=== PATIENT | female | born 1945 | race Caucasian/White ===

== ENCOUNTER 2024-12-26 17:51 | Inpatient (IN) | payer OTHER ==
[2024-12-26] MEDS ORDERED: NA CHLORIDE 0.9% 250 ML ONE (18:20)
[2024-12-26] MEDS ORDERED: METOPROLOL XL 50 MG TAB PO ONE (18:20)
[2024-12-26] MEDS ORDERED: FAMOTIDINE 20 MG/2 ML VIAL IV ONE (18:20)
[2024-12-26] MEDS ORDERED: AMLODIPINE 10 MG TAB ONE (18:20)
[2024-12-26 18:30] LABS: Absolute Basophils 0.1 K/uL (0-0.5); Absolute Eosinophils 0.2 K/uL (0-0.5); Absolute Lymphocytes (CBC) 2.1 K/uL (0.7-4.9); Absolute Monocytes 0.6 K/uL (0.1-1.3); Absolute Neutrophil 4.8 K/uL (1.8-8.0); Basophils % 1.2 % (0-1.3); Eosinophils % 2.2 % (0-4.4); Hematocrit 40.9 % (36.0-45.0); Hemoglobin 13.5 g/dL (12.0-15.0); Lymphocytes % 27.2 % (15.3-44.8); MCH 31.1 pg (27.0-35.0); MCHC 32.9 g/dL (32.0-36.0); MCV 94.5 fL (80-100); MPV 9.3 fL (7.6-11.3); Neutrophils % 61.4 % (41.7-73.7); Nucleated Red Blood Cells % 0.1 % (0-0); Platelets 161 thou/uL (152-406); RBC Red Blood Cell Count 4.33 M/uL (3.86-4.86); Red Cell Distribution Width 14.7 % (12.1-15.2)
[2024-12-26 18:36] LABS: PT Prothrombin Time 12.9 SECONDS (10-13.0); Protime INR 1.14
[2024-12-26 18:57] LABS: ALT/SGPT 16 U/L (13-56); Albumin/Globulin Ratio 0.8 (1.1-1.8); Alkaline Phosphatase 106 U/L (45-117); Anion Gap 7.6 mEq/L (5.0-15.0); BUN Blood Urea Nitrogen 11 mg/dL (7-18); Bicarbonate 29 mEq/L (21-32); Bilirubin Total 0.2 mg/dL (0.2-1.0); Globulin 3.9 g/dL (2.3-3.5); Glomerular Filtration Rate 65 ml/min (=/>90); Glucose Level 107 mg/dL (74-106); Lipase 47 U/L (13-75); NT PRO-BNP 6204 pg/mL (<450); Potassium 3.6 mEq/L (3.5-5.1); Protein, Total 6.9 g/dL (6.4-8.2); Sodium Level 139 mEq/L (136-145); Troponin High Sensitivity 18.4 pg/mL (<58.9)
[2024-12-26 19:00] LABS: AST/SGOT < 10 U/L (15-37); Bilirubin Direct < 0.2 mg/dL (0-0.2)
--- NOTE | 2024-12-26 19:30 | EDPHYS ---
Physician Documentation [facility] Name: Blanche Escobedo Age: 79 yrs Sex: Female : 1945 Arrival Date: 12/26/2024 Time: 17:51 Bed 4 Private MD: ERI Physician Yonatan Smart HPI: 12/26 18:17 This 79 yrs old Female presents to ER via EMS with complaints of Blood narayan Pressure Problem. 18:17 The patient presents with a history of irregular heart beat. Context: The symptoms narayan occur at rest. Onset: The symptoms/episode began/occurred 1 day(s) ago. Modifying factors: The symptoms are aggravated by nothing. The symptoms are alleviated by prescription medication, rest. The patient presents with abdominal pain in the upper abdomen, in the lower abdomen. Onset: The symptoms/episode began/occurred 5 day(s) ago. The patient has elevated blood pressure and discovered this at home, with a home device. Modifying factors: The symptoms are aggravated by activity, The symptoms are alleviated by. Historical: - Allergies: 17:56 No Known Allergies; bp - Home Meds: 17:56 citalopram oral [Active]; Lasix Oral [Active]; bp - PMHx: 17:56 Hypertensive disorder; bp - Immunization history:: Adult Immunizations up to date. - Infectious Disease History:: Denies. - Social history:: Smoking status: unknown. ROS: 18:28 Constitutional: Negative for fever, chills, and weight loss, Eyes: Negative for injury, narayan pain, redness, and discharge, ENT: Negative for injury, pain, and discharge, Neck: Negative for injury, pain, and swelling, Cardiovascular: Negative for chest pain, palpitations, and edema, Respiratory: Negative for shortness of breath, cough, wheezing, and pleuritic chest pain, Back: Negative for injury and pain, : Negative for injury, bleeding, discharge, and swelling, MS/Extremity: Negative for injury and deformity, Skin: Negative for injury, rash, and discoloration, Neuro: Negative for headache, weakness, numbness, tingling, and seizure, Psych: Negative for depression, anxiety, suicide ideation, homicidal ideation, and hallucinations, Allergy/Immunology: Negative for hives, rash, and allergies, Endocrine: Negative for neck swelling, polydipsia, polyuria, polyphagia, and marked weight changes, 18:28 Abdomen/GI: Positive for abdominal cramps, Exam: 18:28 Constitutional: This is a well developed, well nourished patient who is awake, alert, narayan and in no acute distress. Head/Face: Normocephalic, atraumatic. Eyes: Pupils equal round and reactive to light, extra-ocular motions intact. Lids and lashes normal. Conjunctiva and sclera are non-icteric and not injected. Cornea within normal limits. Periorbital areas with no swelling, redness, or edema. ENT: Nares patent. No nasal discharge, no septal abnormalities noted. Tympanic membranes are normal and external auditory canals are clear. Oropharynx with no redness, swelling, or masses, exudates, or evidence of obstruction, uvula midline. Mucous membranes moist. Neck: Trachea midline, no thyromegaly or masses palpated, and no cervical lymphadenopathy. Supple, full range of motion without nuchal rigidity, or vertebral point tenderness. No Meningismus. Chest/axilla: Normal chest wall appearance and motion. Nontender with no deformity. No lesions are appreciated. Cardiovascular: Regular rate and rhythm with a normal S1 and S2. No gallops, murmurs, or rubs. Normal PMI, no JVD. No pulse deficits. Respiratory: Lungs have equal breath sounds bilaterally, clear to auscultation and percussion. No rales, rhonchi or wheezes noted. No increased work of breathing, no retractions or nasal flaring. Back: No spinal tenderness. No costovertebral tenderness. Full range of motion. Female : Normal external genitalia. Skin: Warm, dry with normal turgor. Normal color with no rashes, no lesions, and no evidence of cellulitis. Neuro: Awake and alert, GCS 15, oriented to person, place, time, and situation. Cranial nerves II-XII grossly intact. Motor strength 5/5 in all extremities. Sensory grossly intact. Cerebellar exam normal. Normal gait. Psych: Awake, alert, with orientation to person, place and time. Behavior, mood, and affect are within normal limits. 18:28 ECG was reviewed by the Attending Physician. 18:28 Abdomen/GI: Inspection: distension, that is mild, Bowel sounds: normal, Palpation: mild abdominal tenderness, in all quadrants, Liver: no appreciated palpable abnormalities, Hernia: noted in the umbilical area, incarceration, is not appreciated, tenderness, is not appreciated, Vital Signs: 17:55 BP 194 / 88; bp 18:17 BP 220 / 102; Pulse 73; Resp 18; Pulse Ox 98% on 2 lpm NC; mb9 19:02 BP 188 / 93; Pulse 68; Resp 16; Pulse Ox 97% on 2 lpm NC; mb9 20:33 BP 208 / 82; Pulse 67; Resp 19; Pulse Ox 97% ; vc1 20:34 Temp 98.6; vc1 21:26 BP 172 / 58; Pulse 83; Resp 23; Pulse Ox 93% ; vc1 21:34 BP 161 / 44; vc1 MDM: 18:02 Medical Screening Exam initiated narayan 18:31 Differential diagnosis: arrythmia, dehydration, stress disorder, hypertensive crisis, narayan Malignant HTN, CVA, intracerebral hemorrhage, acute coronary syndrome. Data reviewed: vital signs, nurses notes, lab test result(s), EKG, radiologic studies. Consideration of Admission/Observation Patient was admitted/placed on observation. Escalation of care including admission/observation considered. I considered the following discharge prescriptions or medication management in the emergency department Medications were administered in the Emergency Department. See MAR. Independent interpretation of the following test(s) in the Emergency Department EKG: See my EKG interpretation above. Test considered but Not performed: Ultrasound no 2 d echo. Historians other than the Patient: Daughter/Son: daughter not to well informed. Care significantly affected by the following chronic conditions: Hypertension, Obesity. Counseling: I had a detailed discussion with the patient and/or guardian regarding the historical points, exam findings, and any diagnostic results supporting the discharge/admit diagnosis, the presence of at least one elevated blood pressure reading (>120/80) during this emergency department visit, lab results, radiology results, the need for further work-up and treatment in the hospital. 12/26 18:03 Order name: Basic Metabolic Panel; Complete Time: : [facility] 12/26 18: Order name: CBC with Diff; Complete Time: : [facility] 12/26 18:03 Order name: LFT's; Complete Time: : [facility] 12/26 18:03 Order name: Magnesium; Complete Time: : [facility] 12/26 18:03 Order name: NT PRO-BNP; Complete Time: : [facility] 12/26 18:03 Order name: PT-INR; Complete Time: 19:22 narayan 12/26 18:03 Order name: Troponin HS; Complete Time: 19:22 narayan 12/26 18:03 Order name: Lipase; Complete Time: 19:22 [facility] 12/26 18:17 Order name: Dilantin; Complete Time: 19:22 [facility] 12/26 19:26 Order name: Blood Culture Adult (2) 12/26 19:26 Order name: Lactate w/ 2H reflex if indic. narayan 12/26 20:02 Order name: CBC with Automated Diff EDMS 12/26 20:02 Order name: CBC with Automated Diff EDMS 12/26 20:02 Order name: Comprehensive Metabolic Panel EDMS 12/26 20:02 Order name: Comprehensive Metabolic Panel EDMS 12/26 20:02 Order name: Magnesium EDMS 12/26 20:02 Order name: Magnesium EDMS 12/26 20:02 Order name: Phosphorus EDMS 12/26 20:02 Order name: Phosphorus EDMS 12/26 18:03 Order name: XRAY Chest (1 view); Complete Time: 20:07 [facility] 12/26 18:16 Order name: CT Chest Abdomen Pelvis W/O Contrast narayan 12/26 18:03 Order name: Cardiac monitoring; Complete Time: 18:19 [facility] 12/26 18:03 Order name: EKG - Nurse/Tech; Complete Time: 18:19 [facility] 12/26 18:03 Order name: IV Saline Lock; Complete Time: 18:19 [facility] 12/26 18:03 Order name: Labs collected and sent; Complete Time: 18:19 [facility] 12/26 18:03 Order name: O2 Per Protocol; Complete Time: 18:19 [facility] 12/26 18:03 Order name: O2 Sat Monitoring; Complete Time: 18:19 [facility] EC:28 Rate is 73 beats/min. MO interval is normal. QRS interval is normal. QT interval is narayan normal. No Q waves. T waves are Normal. ST Segment is depressed in leads I, aVL, V5, V6. Clinical impression: NSR w/ Non-specific ST/T Changes. Interpreted by me. Reviewed by me. Administered Medications: 19:25 Discontinued: ns 0.9% 250 ml IV at per protocol once; to be given as a bolus over 30 narayan minutes 18:26 Drug: Famotidine IVP 20 mg IVP once; dilute with 10 mL 0.9% NaCl; give over 2 minutes mb9 Route: IVP; Site: left forearm; 19:02 Follow up: Response: No adverse reaction mb9 18:27 Drug: NS 0.9% IV 250 ml IV at per protocol once; to be given as a bolus over 30 minutes mb9 Route: IV; Rate: per protocol; Site: left forearm; 19:03 Follow up: Response: No adverse reaction; IV Status: Completed infusion mb9 18:27 Drug: Norvasc PO 10 mg PO once Route: PO; mb9 19:02 Follow up: Response: No adverse reaction mb9 18:27 Drug: Metoprolol PO 50 mg PO once Route: PO; mb9 19:02 Follow up: Response: No adverse reaction mb9 20:49 Drug: hydrALAZINE IVP 20 mg IVP once Route: IVP; Site: left forearm; ha1 21:20 Follow up: Response: No adverse reaction; Blood pressure is lowered ha1 21:12 Drug: Rocephin IV 1 grams IV at per protocol once; Given slow IV push per pharmacy vc1 instructions Route: IV; Rate: per protocol; Site: left wrist; 21:50 Follow up: Response: No adverse reaction; IV Status: Completed infusion ha1 21:12 Drug: Furosemide IVP 40 mg IVP once; give over 2 minutes Route: IVP; Site: left wrist; vc1 22:41 Follow up: Response: No adverse reaction ha1 21:25 Drug: levofloxacin IVPB 500 mg 100 ml IVPB once over 60 mins Volume: 100 ml; Route: vc1 IVPB; Infused Over: 60 mins; Site: left forearm; 22:41 Follow up: Response: No adverse reaction; IV Status: Completed infusion ha1 21:25 Drug: Potassium PO Effervescent Tablet 25 mEq PO once; dissolve in 4 ounces of water or vc1 juice Route: PO; 22:41 Follow up: Response: No adverse reaction ha1 21:26 Not Given (not availablee): [id number] mg IVPB once; (mix in 50 to 100mL NS) vc1 Disposition Summary: 12/26/24 19:30 Hospitalization Ordered Notes: Hospitalization Status: Inpatient Admission narayan Provider: Hunter Gamez cha Location: Telemetry/MedSur (Inpatient) narayan Condition: Fair narayan Problem: new narayan Symptoms: have improved narayan Bed/Room Type: Standard narayan Room Assignment: 222(12/26/24 21:03) kmf Diagnosis - Essential (primary) hypertension narayan - Dyspnea narayan - Chronic combined systolic (congestive) and diastolic (congestive) heart failure narayan - Edema, unspecified narayan - Pneumonia due to other specified bacteria - right lower lobe narayan Forms: - Medication Reconciliation Form narayan - SBAR form narayan - Leadership Thank You Letter narayan Signatures: Dispatcher [employer] EDYonatan Peters MD MD cha Peltier, Brian RN RN bp Zenaida Branch RN RN vc1 Brielle Parkinson RN RN ha1 mAy Cruz RN RN mb9 Joseph Tolentino MD MD rt Forrester, Kelsey Maroul kmf Corrections: (The following items were deleted from the chart) 21:03 19:30 narayan kmf
--- NOTE | 2024-12-26 19:30 | ER ---
Nurse's Notes [facility] Name: Blanche Escobedo Age: 79 yrs Sex: Female : 1945 Arrival Date: 12/26/2024 Time: 17:51 Bed 4 Private MD: Diagnosis: Essential (primary) hypertension;Dyspnea;Chronic combined systolic (congestive) and diastolic (congestive) heart failure;Edema, unspecified;Pneumonia due to other specified bacteria-right lower lobe Presentation: 12/26 17:55 Chief complaint: EMS states: HYPERTENSIVE, OUT OF MEDS. bp 17:55 Coronavirus screen: At this time, the client does not indicate any symptoms associated bp with coronavirus-19. Ebola Screen: No symptoms or risks identified at this time. Initial Sepsis Screen: Does the patient meet any 2 criteria? No. Patient's initial sepsis screen is negative. Does the patient have a suspected source of infection? No. Patient's initial sepsis screen is negative. Risk Assessment: Do you want to hurt yourself or someone else? Patient reports no desire to harm self or others. Onset of symptoms is unknown. 17:55 Method Of Arrival: EMS bp 17:55 Acuity: CHAYA 3 bp Historical: - Allergies: 17:56 No Known Allergies; bp - Home Meds: 17:56 citalopram oral [Active]; Lasix Oral [Active]; bp - PMHx: 17:56 Hypertensive disorder; bp - Immunization history:: Adult Immunizations up to date. - Infectious Disease History:: Denies. - Social history:: Smoking status: unknown. Screenin:17 [facility] ED Fall Risk Assessment (Adult) History of falling in the last 3 months, mb9 including since admission No falls in past 3 months (0 pts) Confusion or Disorientation No (0 pts) Intoxicated or Sedated No (0 pts) Impaired Gait No (0 pts) Mobility Assist Device Used No (0 pt) Altered Elimination No (0 pt) Score/Fall Risk Level 0 - 2 = Low Risk Oriented to surroundings, Maintained a safe environment, Educated pt \T\ family on fall prevention, incl call for assistance when getting out of bed. Abuse screen: Denies threats or abuse. Nutritional screening: No deficits noted. Tuberculosis screening: No symptoms or risk factors identified. Assessment: 18:16 General: Appears in no apparent distress. Behavior is calm, cooperative. Pain: Denies frank pain. Neuro: Level of Consciousness is awake, alert, obeys commands, Oriented to person, place, time, situation, Appropriate for age. Cardiovascular: Heart tones S1 S2 present Patient's skin is warm and dry. Cardiovascular: Denies chest pain, shortness of breath. Respiratory: Airway is patent Respiratory effort is even, unlabored, Respiratory pattern is regular, symmetrical, Breath sounds are clear bilaterally. GI: Abdomen is round distended, Bowel sounds present X 4 quads. Abd is soft and non tender X 4 quads. : No signs and/or symptoms were reported regarding the genitourinary system. EENT: No signs and/or symptoms were reported regarding the EENT system. Derm: Skin is pink, warm \T\ dry. Musculoskeletal: Range of motion: intact in all extremities. Vital Signs: 17:55 BP 194 / 88; bp 18:17 BP 220 / 102; Pulse 73; Resp 18; Pulse Ox 98% on 2 lpm NC; mb9 19:02 BP 188 / 93; Pulse 68; Resp 16; Pulse Ox 97% on 2 lpm NC; mb9 20:33 BP 208 / 82; Pulse 67; Resp 19; Pulse Ox 97% ; vc1 20:34 Temp 98.6; vc1 21:26 BP 172 / 58; Pulse 83; Resp 23; Pulse Ox 93% ; vc1 21:34 BP 161 / 44; vc1 ED Course: 17:54 Patient arrived in ED. bp 17:56 Triage completed. bp 17:56 Arm band placed on. bp 18:02 Yonatan Smart MD is Attending Physician. narayan 18:09 Michel Powers, RN is Primary Nurse. bp 18:16 Primary Nurse role handed off by Michel Powers, ANAY marie 18:16 Amy Cruz, ANAY is Primary Nurse. frank 18:16 Initial lab(s) drawn, by me, sent to lab. EKG done, by ED staff, reviewed by Yonatan Smart MD. Inserted saline lock: 22 gauge in left forearm, using aseptic technique. Blood collected. Flushed with 10 mL NS. 18:26 Bed in low position. Call light in reach. Side rails up X 1. Provided Education on: frank press call light if needing anything. Client placed on continuous cardiac and pulse oximetry monitoring. NIBP monitoring applied. bus driver/monitor on. 18:26 No provider procedures requiring assistance completed. mb9 19:25 XRAY Chest (1 view) In Process Unspecified. EDMS 19:27 Hunter Gamez MD is Hospitalizing Provider. [facility] 19:32 CT Chest Abdomen Pelvis W/O Contrast In Process Unspecified. EDMS 22:40 Patient admitted, IV remains in place. ha1 Administered Medications: 19:25 Discontinued: ns 0.9% 250 ml IV at per protocol once; to be given as a bolus over 30 narayan minutes 18:26 Drug: Famotidine IVP 20 mg IVP once; dilute with 10 mL 0.9% NaCl; give over 2 minutes mb9 Route: IVP; Site: left forearm; 19:02 Follow up: Response: No adverse reaction mb9 18:27 Drug: NS 0.9% IV 250 ml IV at per protocol once; to be given as a bolus over 30 minutes mb9 Route: IV; Rate: per protocol; Site: left forearm; 19:03 Follow up: Response: No adverse reaction; IV Status: Completed infusion mb9 18:27 Drug: Norvasc PO 10 mg PO once Route: PO; mb9 19:02 Follow up: Response: No adverse reaction mb9 18:27 Drug: Metoprolol PO 50 mg PO once Route: PO; mb9 19:02 Follow up: Response: No adverse reaction mb9 20:49 Drug: hydrALAZINE IVP 20 mg IVP once Route: IVP; Site: left forearm; ha1 21:20 Follow up: Response: No adverse reaction; Blood pressure is lowered ha1 21:12 Drug: Rocephin IV 1 grams IV at per protocol once; Given slow IV push per pharmacy vc1 instructions Route: IV; Rate: per protocol; Site: left wrist; 21:50 Follow up: Response: No adverse reaction; IV Status: Completed infusion ha1 21:12 Drug: Furosemide IVP 40 mg IVP once; give over 2 minutes Route: IVP; Site: left wrist; vc1 22:41 Follow up: Response: No adverse reaction 1 21:25 Drug: levofloxacin IVPB 500 mg 100 ml IVPB once over 60 mins Volume: 100 ml; Route: vc1 IVPB; Infused Over: 60 mins; Site: left forearm; 22:41 Follow up: Response: No adverse reaction; IV Status: Completed infusion ha1 21:25 Drug: Potassium PO Effervescent Tablet 25 mEq PO once; dissolve in 4 ounces of water or vc1 juice Route: PO; 22:41 Follow up: Response: No adverse reaction 1 21:26 Not Given (not availablee): [id number] mg IVPB once; (mix in 50 to 100mL NS) vc1 Medication: 21:27 VIS not applicable for this client. vc1 Outcome: 19:30 Decision to Hospitalize by Provider. narayan 22:34 Admitted to Med/surg accompanied by tech, via stretcher, room 222, with oxygen, with vc1 chart, 22:34 Condition: stable 22:34 Instructed on the need for admit, 22:42 Patient left the ED. 1 Signatures: Dispatcher [employer] EDYonatan Peters MD MD cha Peltier, Brian, RN RN Zenaida Francisco RN RN vc1 Brielle Parkinson RN RN ha1 Amy Cruz RN RN mb9
--- NOTE | 2024-12-26 19:31 | RAD REPORT ---
EXAMINATION: ONE VIEW CHEST XR CLINICAL INDICATION: Female, 79 years old.,COUGH TECHNIQUE: Frontal chest projection is submitted. Examination is limited by patient positioning and t echnique. COMPARISON: 12/26/2024 FINDINGS: Central interstitial prominence and bilateral perihilar and bibasilar hazy opacities more so on the r ight. Suspected small pleural effusions. No pneumothorax. The heart is normal in size. Mediastinal contours are unremarkable. IMPRESSION: Findings suggestive of pulmonary edema. Superimposed pneumonia may also be considered.
[2024-12-26] MEDS ORDERED: ALBUTEROL 2.5 MG/3 ML NEB SOL NEB PRN (19:57)
[2024-12-26] MEDS ORDERED: IPRATROPIUM BROM 0.5MG/2.5ML NEB PRN (19:57)
[2024-12-26] MEDS ORDERED: ACETAMINOPHEN 325 MG TABLET PO PRN (19:57)
--- NOTE | 2024-12-26 19:57 | P.HP ---
Certification for Inpatient Patient admitted to: Inpatient With expected LOS: >2 Midnights Practitioner: I am a practitioner with admitting privileges, knowledge of patient current condition, hospital course, and medical plan of care. Services: Services provided to patient in accordance with Admission requirements found in Title 42 Section 412.3 of the Code of Federal Regulations Patient History Date of Service: 12/27/24 Reason for admission: CHF exacerbation History of Present Illness: 79 yrs old Female with past medical history of hypertension, hyperlipidemia, history of ? CHF brought to ER with irregular heartbeat and shortness of breath and elevated blood pressure. Symptoms started a day ago associated with irregular heartbeat and generalized weakness. Denies any fever or chills. No nausea vomiting diarrhea. No sick contacts. Complains of abdominal discomfort in the right upper quadrant and epigastric region. Denies any nausea vomiting or diarrhea. Denies any chest pain. Patient was assessed in the ER and is admitted for further management of CHF exacerbation Allergies Penicillins Allergy (Verified 12/26/24 23:02) Itching Home medications list reviewed: Yes - Past Medical/Surgical History Past Medical History: Reviewed- Non-Contributory Past Surgical History: Reviewed- Non-Contributory - Family History Family History: Reviewed- Non-Contributory - Family History Mother -: Cancer - Social History Smoking Status: Never smoker Review of Systems 10-point ROS is otherwise unremarkable Physical Examination - Vital Signs Temperature: 98.2 F Blood Pressure: 168/75 Pulse: 78 Respirations: 18 Pulse Ox (%): 94 - Physical Exam General: Alert, In no apparent distress, Oriented x3 HEENT: Atraumatic, Normocephalic Neck: Supple Respiratory: Clear to auscultation bilaterally, Diminished Cardiovascular: Regular rate/rhythm, Normal S1 S2 Capillary refill: <2 Seconds Gastrointestinal: Soft and benign, W/out hepatosplenomegaly Musculoskeletal: No clubbing Integumentary: No rashes, No tenderness/swelling Neurological: Other (Awake alert nonfocal) Lymphatics: No axilla or inguinal lymphadenopathy - Studies Laboratory Data (last 24 hrs) 12/26/24 12/26/24 12/26/24 18:14 18:14 18:14 WBC 7.80 Hgb 13.5 Hct 40.9 Plt Count 161 PT 12.9 INR 1.14 Sodium 139 Potassium 3.6 BUN 11 Creatinine 0.90 Glucose 107 H Magnesium 2.0 Total Bilirubin 0.2 AST < 10 L ALT 16 Alkaline Phosphatase 106 Lipase 47 Assessment and Plan - Plan Acute on chronic CHF possibly systolic/diastolic Monitor closely on telemetry Started on aggressive diuresis X-ray findings consistent with CHF Oxygen supplementation Will try to wean down oxygen requirement Continue home medications Titrate as needed Will obtain an echocardiogram Cardiology consult Hypertension Antihypertensives titrated Continue home medications and titrate as needed Hyperlipidemia Continue statin GI/DVT prophylaxis Advanced directive full code Discharge Plan: Home Plan to discharge in: 48 Hours - Advance Directives Does patient have a Living Will: No Does patient have a Durable POA for Healthcare: No - Code Status/Comfort Care Code Status: Full Code Time Spent Managing Pts Care (In Minutes): 48
--- NOTE | 2024-12-26 20:31 | RAD REPORT ---
EXAM: CT CHEST, ABDOMEN AND PELVIS WITHOUT CONTRAST CLINICAL INDICATION: Female, 79 years old. [facility] MAIN Abdominal distention;Dyspnea Bed Name: 4 TECHNIQUE: CT chest, abdomen and pelvis was performed, without IV contrast, as per department protoco l. Axial, sagittal and coronal reconstructions were obtained. One or more of the following dose reduction techniques were used: Automated exposure control, adjustment of the mA and/or kV according to the patient size, and/or iterative reconstruction. Unless otherwise specified, incidental findings do not require dedicated imaging follow-up. COMPARISON: Chest radiograph of the same day FINDINGS: The lack of intravenous contrast limits the sensitivity of this exam for evaluation of solid visceral organs, vascular structures, and retroperitoneum. Chest: LOWER NECK/CHEST WALL: Visualized thyroid gland and soft tissues are normal. LUNGS AND AIRWAYS: Central airways are patent. Interlobular septal thickening, basal predominant, wit h dependent segmental airspace opacities with volume loss. Subtle Josefina B-lines are also noted. PLEURA: Bilateral moderate pleural effusion larger on the right. No pneumothorax. Hemidiaphragms are normally positioned. MEDIASTINUM AND LYMPH NODES: No mediastinal mass or fluid collection. Normal size mediastinal, hilar, and axillary lymph nodes. THORACIC AORTA: Normal caliber and configuration. PULMONARY ARTERIES: Normal caliber. HEART: mildly enlarged. Abdomen/Pelvis LIVER: Normal in size and contour. No focal lesion. GALLBLADDER/BILE DUCTS: No biliary ductal dilatation. PANCREAS: No mass, ductal dilation, or robert-pancreatic fluid. SPLEEN: Normal size. No focal lesion. ADRENALS: Normal; no mass. KIDNEYS AND URETERS: Normal size and contour. No hydronephrosis. GASTROINTESTINAL TRACT: Stomach is non-dilated. Small bowel has normal course and caliber. No colonic wall thickening or pericolonic inflammatory changes. PERITONEUM: No free fluid. LYMPH NODES: No lymphadenopathy. ABDOMINAL AORTA AND OTHER VESSELS: Normal caliber aorta and IVC. URINARY BLADDER: Compressed limiting evaluation.. REPRODUCTIVE ORGANS: No pathologic process. MUSCULOSKELETAL: No acute or suspicious osseous abnormality. ADDITIONAL FINDINGS: Small umbilical hernia containing fat. Multiple foci of calcifications in the pe riphery of the uterus, could be vascular or related subtle fibroids. Vascular medial calcifications, suggesting sequelae of diabetes mellitus. IMPRESSION: Pulmonary edema pattern with bilateral pleural effusions larger on the right. Dependent airspace opac ities with volume loss, favoring atelectasis rather than pneumonia. No acute findings in the abdomen or pelvis. Incidental findings as above.
[2024-12-26] MEDS ORDERED: HYDRALAZINE HCL 20 MG/ML VIAL ONE (20:46)
[2024-12-26] MEDS ORDERED: FUROSEMIDE 40 MG/4 ML VIAL ONE (20:55)
[2024-12-26] MEDS ORDERED: CEFTRIAXONE 1000 MG/VIAL ONE (20:55)
[2024-12-26] MEDS ORDERED: POTASSIUM 25 MEQ EFFERV TAB ONE (20:55)
[2024-12-26] MEDS ORDERED: NA CHLORIDE 0.9% 100 ML ONE (20:58)
[2024-12-26] MEDS ORDERED: Levofloxacin500mg IV 500 MG/100 ML BAG IV ONE (20:58)
[2024-12-26] MEDS: FUROSEMIDE 40 MG/4 ML VIAL IV SCH (21:21)
[2024-12-26] MEDS ORDERED: ONDANSETRON 4 MG/2 ML VIAL ONE (21:48)
[2024-12-26] MEDS: ONDANSETRON 4 MG/2 ML VIAL IV PRN (21:52)
[2024-12-27] MEDS: LOSARTAN POTASSIUM 50 MG TABLET PO SCH (00:50)
[2024-12-27] MEDS: HYDRALAZINE HCL 25 MG TABLET PO SCH (00:50)
[2024-12-27] MEDS: HYDRALAZINE HCL 20 MG/ML VIAL IV PRN (04:30)
[2024-12-27 05:47] LABS: Absolute Basophils 0.1 K/uL (0-0.5); Absolute Eosinophils 0.1 K/uL (0-0.5); Absolute Lymphocytes (CBC) 1.6 K/uL (0.7-4.9); Absolute Monocytes 0.7 K/uL (0.1-1.3); Absolute Neutrophil 6.9 K/uL (1.8-8.0); Basophils % 1.1 % (0-1.3); Eosinophils % 0.9 % (0-4.4); Hematocrit 38.3 % (36.0-45.0); Hemoglobin 12.9 g/dL (12.0-15.0); Lymphocytes % 16.6 % (15.3-44.8); MCH 31.3 pg (27.0-35.0); MCHC 33.7 g/dL (32.0-36.0); MCV 92.9 fL (80-100); MPV 9.3 fL (7.6-11.3); Monocytes % 7.4 % (3.3-12.3); Nucleated Red Blood Cells % 0.1 % (0-0); Platelets 169 thou/uL (152-406); RBC Red Blood Cell Count 4.12 M/uL (3.86-4.86); Red Cell Distribution Width 14.7 % (12.1-15.2)
[2024-12-27 06:08] LABS: Albumin 2.8 g/dL (3.4-5.0); Albumin/Globulin Ratio 0.7 (1.1-1.8); Alkaline Phosphatase 98 U/L (45-117); Anion Gap 9.4 mEq/L (5.0-15.0); BUN Blood Urea Nitrogen 11 mg/dL (7-18); Bicarbonate 27 mEq/L (21-32); Bilirubin Total 0.3 mg/dL (0.2-1.0); Globulin 3.8 g/dL (2.3-3.5); Glomerular Filtration Rate 63 ml/min (=/>90); Glucose Level 122 mg/dL (74-106); Magnesium 1.7 mg/dL (1.6-2.4); Phosphorus 3.4 mg/dL (2.5-4.9); Potassium 3.4 mEq/L (3.5-5.1); Protein, Total 6.6 g/dL (6.4-8.2); Sodium Level 137 mEq/L (136-145)
[2024-12-27 06:11] LABS: ALT/SGPT < 14 U/L (13-56); AST/SGOT < 10 U/L (15-37)
[2024-12-27] MEDS: FLU (Fluarix Triv) TS24-25(6MOS UP)/PF 45 MCG/0.5 ML Syringe IM ONE (07:15)
[2024-12-27] MEDS ORDERED: ALBUTEROL 2.5 MG/3 ML NEB SOL NEB PRN (07:57)
[2024-12-27] MEDS: POTASSIUM CL SA 10 MEQ TAB PO ONE (08:35)
[2024-12-27] MEDS: MAGNESIUM SULFATE 1 gm IVPB 1 GM/100 ML BAG IV ONE (08:36)
[2024-12-27] MEDS: ENOXAPARIN 40 MG/0.4 ML SQ SCH (08:36)
[2024-12-27] MEDS: KCL 20 MEQ/100 mL IVPB 20 MEQ/100 ML BAG IV SCH (09:00)
[2024-12-27] MEDS: PHENYTOIN ER 100 MG CAP PO SCH (13:22)
[2024-12-27] MEDS: PANTOPRAZOLE 40MG TABLET PO SCH (13:22)
[2024-12-27] MEDS: METOPROLOL XL 25 MG TAB PO SCH (13:22)
--- NOTE | 2024-12-27 14:03 | P.PN ---
Subjective Date of Service: 12/27/24 Chief Complaint: CHF exacerbation Patient stated her shortness of breath is better. She denies any chest pain. She is currently maintained on 3 L oxygen by nasal cannula. Physical Examination - Vital Signs Temperature: 98.2 F Blood Pressure: 129/59 Pulse: 70 Respirations: 20 Pulse Ox (%): 94 - Studies Laboratory Data (last 24 hrs) 12/26/24 12/26/24 12/26/24 18:14 18:14 18:14 WBC 7.80 Hgb 13.5 Hct 40.9 Plt Count 161 PT 12.9 INR 1.14 Sodium 139 Potassium 3.6 BUN 11 Creatinine 0.90 Glucose 107 H Magnesium 2.0 Total Bilirubin 0.2 AST < 10 L ALT 16 Alkaline Phosphatase 106 Lipase 47 Assessment And Plan - Plan Physical examination General: Alert and oriented x3, NAD, HEENT: Conjunctiva not pale, anicteric sclera Neck: Supple, no elevated JVD Heart: Heart sounds 1 and 2 normal, regular rhythm, normal rate, no pedal edema Lungs: C bibasilar crackles, adequate breath sounds bilaterally, no rhonchi or wheezes. Abdomen: Soft, nondistended, nontender, normal bowel sounds. Extremities: No tenderness, no deformity Skin: Normal skin turgor, no rash, no nodules or ulcers. Neuro: No focal motor deficit. Normal speech. Psychiatry: Normal mood, no agitation. Diagnosis Acute CHF-unknown EF Bilateral pleural effusion Malignant hypertension Seizure disorder Plan: Acute CHF Bilateral pleural effusion Unknown EF Aggressive diuresis with IV Lasix. Monitor intake and output Monitor renal function by Lasix. Echocardiogram is pending Cardiology consult Supplemental oxygen as needed. Malignant hypertension Patient given a dose of IV hydralazine and a dose of oral metoprolol Patient is currently normotensive Monitor BP Hydralazine IV as needed for BP spikes. Seizure disorder Patient given a dose of IV fosphenytoin in the ED. Phenytoin level checked is subtherapeutic. Resume home dose phenytoin. Hypokalemia Oral potassium replacement Monitor and optimize potassium levels as needed. DVT prophylaxis: Lovenox Advanced directive: full code
[2024-12-27] MEDS: ATORVASTATIN 40 MG TAB PO SCH (21:03)
[2024-12-28 05:52] LABS: Potassium 3.6 mEq/L (3.5-5.1)
[2024-12-28] MEDS: POTASSIUM CL SA 10 MEQ TAB PO ONE (09:32)
--- NOTE | 2024-12-28 12:08 | EKG ---
Test Date: 2024-12-26 Test Time: 18:16:44 Safety Teacher: RULA MEASUREMENT RESULTS: Intervals: Rate: 73 OR: 152 QRSD: 96 QT: 388 QTc: 427 [place]: P: 0 OR: 152 QRS: -9 T: 160 INTERPRETIVE STATEMENTS: Normal sinus rhythm Anterior infarct, age undetermined ST & T wave abnormality, consider lateral ischemia Abnormal ECG No previous ECG available for comparison Electronically Signed On 12-28-24 12:06:27 CDT by Gerry Kidd
--- NOTE | 2024-12-28 15:47 | RAD REPORT ---
Procedure: Chest Single View HISTORY: Cough COMPARISON: December 26, 2024 FINDINGS: Moderate right and [id number] left pleural effusions without significant change Bilateral pulmonary opacities have mostly resolved. Heart remains enlarged
--- NOTE | 2024-12-28 17:42 | P.PN ---
Subjective Date of Service: 12/28/24 Chief Complaint: CHF exacerbation Patient reports significant improvement in her shortness of breath. Patient states she uses oxygen only during sleep She denies any chest pain. Oxygen saturation 92% on room air however patient desaturated to 85% with ambulation. Physical Examination - Vital Signs Temperature: 98.0 F Blood Pressure: 192/79 Pulse: 67 Respirations: 18 Pulse Ox (%): 92 Assessment And Plan - Plan Physical examination General: Alert, NAD, HEENT: Conjunctiva not pale, anicteric sclera Neck: No elevated JVD Heart: Heart sounds 1 and 2 normal, regular rhythm, normal rate, no pedal edema Lungs: Bibasilar crackles, adequate breath sounds bilaterally, no rhonchi or wheezes. Abdomen: Soft, nondistended, nontender, normal bowel sounds. Extremities: No tenderness, no deformity Skin: Normal skin turgor, no rash, no nodules or ulcers. Neuro: No focal motor deficit. Normal speech. Psychiatry: Normal mood, no agitation. Diagnosis Acute CHF-unknown EF Bilateral pleural effusion Malignant hypertension Seizure disorder Acute respiratory failure with hypoxia. Plan: Acute CHF Bilateral pleural effusion Acute respiratory failure with hypoxia Continue IV Lasix for 1 more day Monitor intake and output Echocardiogram is pending Wean oxygen as needed. Malignant hypertension Blood pressure readings are still high Hydralazine IV as needed for BP spikes. Continue hydralazine, losartan and metoprolol. Titrate antihypertensives. Seizure disorder Patient given a dose of IV fosphenytoin in the ED. Phenytoin level checked is subtherapeutic. Continue home dose phenytoin. Hypokalemia Replace potassium as needed Monitor electrolytes. DVT prophylaxis: Lovenox Advanced directive: full code
[2024-12-29 07:07] LABS: Anion Gap 7.5 mEq/L (5.0-15.0); Potassium 3.5 mEq/L (3.5-5.1)
[2024-12-29] MEDS: POTASSIUM CL SA 10 MEQ TAB PO ONE (09:07)
--- NOTE | 2024-12-29 10:03 | P.PN ---
Date of Service: 12/29/24 Subjective: feeling slightly better today denies any new / worsening problems has O2 she uses at home as needed. Mainly used at night during sleep afebrile she does report being in hospital in other town last year - for gallbladder stones. At that time had an echo and stress test and was told she had prior heart attack she never knew about. She did not undergo cardiac cath, and was eventually dc'd home with plans for elective cholecystectomy. Physical Exam: GEN: Alert, oriented, NAD CV: Regular rate and rhythm, trace-1+ edema RLE up to anterior tibia area. Trace edema LLE Pulm: mildly labored respirations on 3L NC, diminished at bases b/l ABD: soft, nontender, nondistended Neuro: Normal speech, normal affect Problem List: Acute CHF-unknown EF Bilateral pleural effusion Acute respiratory failure with hypoxia secondary to above Malignant hypertension Seizure disorder Acute CHF-unknown EF Bilateral pleural effusion Acute respiratory failure with hypoxia secondary to above on admission, presents with worsening SOB associated with irregular heartbeats, weakness. +RUQ abdominal/epigastric pain. has O2 she uses at home as needed. Mainly used at night during sleep CT chest/abd: Pulm edema pattern with bilateral pleural effusions R > L. +atelectasis vs pneumonia less likely. given IV lasix, rocephin, levaquin in ED. no further abx - no clear source of infxn Echo ordered to eval EF / stenosis Strict I/Os. 12/28 - CXR with some improvement in bilateral opacities. Pleural effusions mostly unchanged. 12/29 - Cardiology consulted sounds like had negative stress test last year but maybe noted a prior fixed defect, unclear IV lasix q8h -> BID today Malignant hypertension reportedly ran out of home medications per ER notes BP in 200-220s in ED. Given amlodipine, metoprolol, hydralazine in ED. continue losartan, metoprolol, adjust meds/dose as needed for better control PRN hydralazine Seizure disorder Patient given a dose of IV fosphenytoin in the ED. Phenytoin levels are subtherapeutic. Continue home dose phenytoin. Hypokalemia Monitor and replete electrolytes as needed VTE: Lovenox Code: Full Dispo: Home, ~ 1-2 days Time Spent Managing Pts Care (In Minutes): 55
[2024-12-29] MEDS: FUROSEMIDE 40 MG/4 ML VIAL IV SCH (15:58)
[2024-12-30 06:05] LABS: Anion Gap 8.5 mEq/L (5.0-15.0); Magnesium 1.9 mg/dL (1.6-2.4); Phosphorus 3.4 mg/dL (2.5-4.9); Potassium 3.5 mEq/L (3.5-5.1)
[2024-12-30] MEDS: POTASSIUM CL SA 10 MEQ TAB PO ONE (08:14)
--- NOTE | 2024-12-30 10:32 | ECHO ---
HEIGHT: 5 ft 3 in WEIGHT: 200 lb 0 oz DATE OF STUDY: 12/29/[address]: Giuseppe Mcnally MD 2-DIMENSIONAL: YES M.MODE: YES DOPPLER: YES COLOR FLOW: YES TDS: PORTABLE: YES DEFINITY: BUBBLE STUDY: DIAGNOSIS: CONGESTIVE HEART FAILURE CARDIAC HISTORY: CATHERIZATION: SURGERY: PROSTHETIC VALVE: PACEMAKER: MEASUREMENTS (cm) DIASTOLIC (NORMALS) SYSTOLIC (NORMALS) IVSd 1.0 (0.6-1.2) LA Diam 3.7 (1.9-4.0) LVEF 60-65% LVIDd 4.0 (3.5-5.7) LVIDs 29 (2.0-3.5) %FS 26% LVPWd 1.1 (0.6-1.2) Ao Diam 2.3 (2.0-3.7) 2 DIMENSIONAL ASSESSMENT: RIGHT ATRIUM: NORMAL LEFT ATRIUM: NORMAL RIGHT VENTRICLE: NORMAL LEFT VENTRICLE: NORMAL TRICUSPID VALVE: MILD TRICUSPID REGURGITATION MITRAL VALVE: TRACE TRICUSPID REGURGITATION PULMONIC VALVE: NORMAL AORTIC VALVE: NORMAL PERICARDIAL EFFUSION: NONE AORTIC ROOT: NORMAL LEFT VENTRICULAR WALL MOTION: NORMAL DOPPLER/COLOR FLOW: GRADE II DIASTOLIC DYSFUNCTION COMMENTS: 1. NORMAL LEFT VENTRICULAR SYSTOLIC FUNCTION, EJECTION FRACTION 60-65%, NORMAL WALL MOTION 2. DIASTOLIC DYSFUNCTION TECHNOLOGIST: MIKY HERRON
--- NOTE | 2024-12-30 11:51 | P.CNS ---
Date of Consult: 12/30/24 Chief Complaint: CHF exacerbation History of Present Illness: Patient with PMH of heart failure preserved EF, HTN, presented with worsening SOB, Bilateral lower extremities swelling, denies chest pain, no palpitations, no syncope. Allergies Penicillins Allergy (Verified 12/26/24 23:02) Itching Home medications list reviewed: Yes Home Medications: Citalopram [Celexa] 100 mg PO QID 12/27/24 Glipizide [Glipizide Xl] 5 mg PO DAILY 12/27/24 Magnesium Salicylate/Caffeine [Diurex Water Pills] 1 each PO DAILY 12/27/24 PHENYTOIN ER Cap [Dilantin ER Cap] 100 mg PO DAILY 12/27/24 Pantoprazole [Protonix Tab] 40 mg PO DAILY 12/27/24 RX: Atorvastatin Calcium 40 mg PO BEDTIME 12/27/24 RX: Furosemide 40 mg PO DAILY 12/27/24 RX: Metoprolol Succinate 25 mg PO DAILY 12/27/24 - Past Medical/Surgical History Diabetic: Yes -: diabetes -: chf -: gi bleed -: SD - Family History Mother Medical History: Cancer - Social History Smoking Status: Unknown if ever smoked Alcohol use: No CD- Drugs: No Caffeine use: No Place of Residence: Home Review of Systems 10-point ROS is otherwise unremarkable Physical Examination Temp Pulse Resp BP Pulse Ox 97.9 F 71 17 137/82 94 12/30/24 08:00 12/30/24 08:00 12/30/24 08:00 12/30/24 10:31 12/30/24 08:00 General: Alert, In no apparent distress HEENT: Atraumatic, PERRLA, Mucous membr. moist/pink, EOMI, Sclerae nonicteric Neck: Supple, 2+ carotid pulse no bruit, No LAD, Without JVD or thyroid abnormality Respiratory: Clear to auscultation bilaterally, Normal air movement Cardiovascular: Regular rate/rhythm, Normal S1 S2 Gastrointestinal: Normal bowel sounds, No tenderness Musculoskeletal: No tenderness Integumentary: No rashes Neurological: Normal gait, Normal speech, Normal tone, Normal affect Lymphatics: No axilla or inguinal lymphadenopathy - Problems (1) Acute on chronic diastolic heart failure Current Visit: Yes Status: Acute Plan: continue Lasix 40 mg IV BID Continue Toprol XL 25 mg daily continue losartan 50 mg daily continue Hydralazine 50 mg TID Consider adding Farxiga 10 mg daily at discharge. Echo shows normal EF with DD. continue to monitor input and output and electrolytes. (2) CAD (coronary artery disease) Current Visit: Yes Status: Acute Plan: per patient she had a stress test and was told that had an old SD. no active chest pain, continue ASA 81 mg daily outpatient follow up with cardiology to obtain records and plan further work up. (3) HTN (hypertension) Current Visit: Yes Status: Acute
--- NOTE | 2024-12-30 12:43 | P.PN ---
Date of Service: 12/30/24 Subjective: Feeling better today breathing feels easier today no events overnight Physical Exam: GEN: Alert, oriented, NAD CV: Regular rate and rhythm, trace-1+ edema RLE up to anterior tibia area. Trace edema LLE Pulm: mildly labored respirations on 3L NC, diminished at bases b/l ABD: soft, nontender, nondistended Neuro: Normal speech, normal affect Problem List: Acute CHF (HFpEF) Bilateral pleural effusion Acute respiratory failure with hypoxia secondary to above Malignant hypertension Seizure disorder Acute CHF (HFpEF) Bilateral pleural effusion Acute respiratory failure with hypoxia secondary to above on admission, presents with worsening SOB associated with irregular heartbeats, weakness. +RUQ abdominal/epigastric pain. has O2 she uses at home as needed. Mainly used at night during sleep CT chest/abd: Pulm edema pattern with bilateral pleural effusions R > L. +atelectasis vs pneumonia less likely. given IV lasix, rocephin, levaquin in ED. no further abx - no clear source of infxn Echo with normal EF, diastolic dysfunction, mild TR, trace MR Strict I/Os. 12/28 - CXR with some improvement in bilateral opacities. Pleural effusions mostly unchanged. 12/29 - Cardiology consulted sounds like had negative stress test last year but maybe noted a prior fixed defect, uncleaR IV lasix q8h -> BID today 12/30 - Continue IV lasix BID renal function stable Consider adding Farxiga 10 mg daily at discharge per cardio f/u with cardio as outpatient for further management Malignant hypertension reportedly ran out of home medications per ER notes BP in 200-220s in ED. Given amlodipine, metoprolol, hydralazine in ED. continue losartan, metoprolol, adjust meds/dose as needed for better control PRN hydralazine Seizure disorder Patient given a dose of IV fosphenytoin in the ED. Phenytoin levels are subtherapeutic. Continue home dose phenytoin. Hypokalemia Monitor and replete electrolytes as needed VTE: Lovenox Code: Full Dispo: Home, ~1-2 days Time Spent Managing Pts Care (In Minutes): 55
[2024-12-31 08:18] LABS: Anion Gap 8.5 mEq/L (5.0-15.0); Magnesium 2.1 mg/dL (1.6-2.4); Potassium 3.5 mEq/L (3.5-5.1)
--- NOTE | 2024-12-31 10:21 | P.PN ---
Date of Service: 12/31/24 Subjective: Feeling better today breathing a little easier today. Off oxygen this morning lower extremity edema no acute events overnight afebrile Physical Exam: GEN: Alert, oriented, NAD CV: Regular rate and rhythm, trace-1+ edema RLE up to anterior tibia area. Trace edema LLE Pulm: mildly labored respirations on 3L NC, diminished at bases b/l ABD: soft, nontender, nondistended Neuro: Normal speech, normal affect Problem List: Acute CHF (HFpEF) Bilateral pleural effusion Acute respiratory failure with hypoxia secondary to above Malignant hypertension Paroxysmal a-fib Seizure disorder Acute CHF (HFpEF) Bilateral pleural effusion Acute respiratory failure with hypoxia secondary to above on admission, presents with worsening SOB associated with irregular heartbeats, weakness. +RUQ abdominal/epigastric pain. has O2 she uses at home as needed. Mainly used at night during sleep CT chest/abd: Pulm edema pattern with bilateral pleural effusions R > L. +atelectasis vs pneumonia less likely. given IV lasix, rocephin, levaquin in ED. no further abx - no clear source of infxn Echo with normal EF, diastolic dysfunction, mild TR, trace MR Strict I/Os. 12/28 - CXR with some improvement in bilateral opacities. Pleural effusions mostly unchanged. 12/29 - Cardiology consulted sounds like had negative stress test last year but maybe noted a prior fixed defect, uncleaR IV lasix q8h -> BID today 12/30 - Continue IV lasix BID renal function stable Consider adding Farxiga 10 mg daily at discharge per cardio f/u with cardio as outpatient for further management 12/31 - Improving daily. Feels breathing is a little easier today. Off oxygen this morning switch to PO lasix increase losartan to 100mg Malignant hypertension reportedly ran out of home medications per ER notes BP in 200-220s in ED. Given amlodipine, metoprolol, hydralazine in ED. continue losartan, metoprolol, adjust meds/dose as needed for better control 12/31 - Losartan increased to 100 mg daily continue metoprolol, oral hydralazine Monitor BP - more controlled in 160-170 Paroxysmal a-fib on review of OSH records, patient noted to have a history of paroxysmal a-fib Previously on amiodarone. Not on anticoagulation. Unclear exactly why. No clear documentation found. Cardiology discussed anticoagulation with patient. In agreement to start eliquis 5mg po BID Seizure disorder Patient given a dose of IV fosphenytoin in the ED. Phenytoin levels are subtherapeutic. Continue home dose phenytoin. Hypokalemia Monitor and replete electrolytes as needed VTE: Lovenox Code: Full Dispo: Home, ~1-2 days Time Spent Managing Pts Care (In Minutes): 55
--- NOTE | 2024-12-31 10:24 | P.PN ---
Subjective Date of Service: 12/31/24 Chief Complaint: CHF exacerbation Subjective: No new changes, No C/O voiced, Tolerating diet, Ambulating, Improving Review of Systems 10-point ROS is otherwise unremarkable Physical Examination - Vital Signs Temperature: 98.1 F Blood Pressure: 170/58 Pulse: 71 Respirations: 17 Pulse Ox (%): 92 - Physical Exam General: Alert, In no apparent distress HEENT: Atraumatic, PERRLA, EOMI Neck: Supple, JVD not distended Respiratory: Clear to auscultation bilaterally, Normal air movement Cardiovascular: Regular rate/rhythm, Normal S1 S2 Gastrointestinal: Normal bowel sounds, No tenderness Musculoskeletal: No tenderness Integumentary: No rashes Neurological: Normal speech, Normal tone, Normal affect Lymphatics: No axilla or inguinal lymphadenopathy - Studies Medications List Reviewed: Yes Assessment And Plan - Current Problems (Diagnosis) (1) Acute on chronic diastolic heart failure Current Visit: Yes Status: Acute Plan: Switch lasix to 40 mg po BID for 5 days then continue Lasix 40 mg daily increase Toprol XL to 50 mg daily continue losartan 100 mg daily continue Hydralazine 50 mg TID Consider adding Farxiga 10 mg daily at discharge. Echo shows normal EF with DD. continue to monitor input and output and electrolytes. (2) CAD (coronary artery disease) Current Visit: Yes Status: Acute Plan: per patient she had a stress test and was told that had an old SD. no active chest pain, continue ASA 81 mg daily outpatient follow up with cardiology to obtain records and plan further work up. (3) HTN (hypertension) Current Visit: Yes Status: Acute Plan: as above. (4) Atrial fibrillation Current Visit: Yes Status: Acute Plan: per chart review, AF was mentioned in her chart in [facility] and she was on amidoarone resume amiodarone 200 mg daily discussed anticoagulation with patient and she agrees on it start Eliquis 5 mg po BID tele shows she is in sinus rhythm
[2024-12-31] MEDS: LOSARTAN POTASSIUM 50 MG TABLET PO SCH (10:55)
[2024-12-31] MEDS: POTASSIUM CL SA 10 MEQ TAB PO ONE (13:36)
[2024-12-31] MEDS: FUROSEMIDE 40 MG TABLET PO SCH (17:00)
[2024-12-31] MEDS: APIXABAN 5 MG TABLET PO SCH (21:15)
[2025-01-01 06:01] LABS: Anion Gap 7.6 mEq/L (5.0-15.0); Magnesium 2.1 mg/dL (1.6-2.4); Potassium 3.6 mEq/L (3.5-5.1)
[2025-01-01] MEDS: AMLODIPINE 10 MG TAB PO SCH (06:19)
[2025-01-01 06:44] VITALS: TEMP 98
[2025-01-01 06:45] VITALS: BMI 34.8
[2025-01-01] MEDS: POTASSIUM 25 MEQ EFFERV TAB PO ONE (08:16)
[2025-01-01] MEDS: METOPROLOL XL 50 MG TAB PO SCH (08:17)
[2025-01-01 08:18] VITALS: BP 203/83
[2025-01-01] MEDS: AMIODARONE HCL 200 MG TAB PO SCH (08:18)
[2025-01-01 09:12] VITALS: O2SAT 94
--- NOTE | 2025-01-02 06:47 | P.DS ---
Admission Date: 12/26/24 Discharge Date: 01/01/25 Disposition: DC HOME/HOME HEALTH CARE Discharge Condition: GOOD Reason for Admission: CHF exacerbation Consultations: Cardiology - Dr. Kidd Brief History of Present Illness: 79yo F, PMH: hypertension, hyperlipidemia, history of ? CHF patient brought to ER with irregular heartbeat and shortness of breath and elevated blood pressure. Symptoms started a day ago associated with irregular heartbeat and generalized weakness. Denies any fever or chills. No nausea vomiting diarrhea. No sick contacts. Complains of abdominal discomfort in the right upper quadrant and epigastric region. Denies any nausea vomiting or diarrhea. Denies any chest pain. Patient was assessed in the ER and is admitted for further management of CHF exacerbation Hospital Course: Problem List: Acute CHF (HFpEF) Bilateral pleural effusion Acute respiratory failure with hypoxia secondary to above Malignant hypertension Paroxysmal a-fib Seizure disorder Physician discharge instructions: Patient presented with worsening SOB associated with irregular heartbeats, weakness secondary to acute CHF exacerbation. CT chest/abdomen/pelvis on admission noted pulmonary edema with bilateral pleural effusions Right > left. Echocardiogram this hospitalization with 60-65% EF, grade 2 diastolic dysfunction, mild tricuspid regurgitation, trace mitral regurgitation. Patient was started on IV lasix and had improvement of her symptoms. Repeat chest xray demonstrated improvement in bilateral pulmonary opacities. Lower extremity edema and breathing improved with diuresis. Patient breathing comfortably on room air on day of discharge. Patient was feeling better, breathing more comfortably on room air, afebrile without leukocytosis, edema improving, and was deemed stable for discharge. Patient's blood pressure was significantly elevated in the ED (200-220s) and fluctuated throughout hospitalization. Patient reportedly had been out of his home meds for some time. Patient had her blood pressure medications adjusted and was able to attain better control. Metoprolol was increased to 50 mg daily from 25 mg daily, and losartan was increased to 100 mg daily from 50 mg daily. Check blood pressure around the same time each day. Keep daily log of blood pressure readings to take to follow up appointments in case further adjustments of home meds are needed. Patient was noted to have a history of paroxsymal a-fib, not on anticoagulation prior to this hospitalization. Unclear exactly why she wasn't started on a blood thinner previously. There is no clear documentation on outside records found and family do not know. Cardiology discussed risks/benefits of starting anticoagulation with patient and family. Dr. Kidd recommended starting patient on eliquis 5 mg twice daily to which patient and family were agreeable too. Follow up with cardiology in 2-4 weeks for continued management. Medications: Eliquis 5 mg twice daily Amlodipine 10mg daily Losartan increased to 100 mg daily from 50mg Metoprolol XL increased to 50mg daily from 25mg continue Lasix 40 mg daily continue amiodarone as previously prescribed, refill sent continue other medications as previously prescribed - pantoprazole, phenytoin, etc. Continue other medications as previously prescribed Follow up: PCP 3-5 days Cardiology 2-4 weeks Please call to schedule / confirm appointments Physical Exam: GEN: Alert, oriented, NAD CV: Regular rate and rhythm, no edema Pulm: nonlabored respirations on room air, clear bilaterally ABD: soft, nontender, nondistended Neuro: Normal speech, normal affect Vital Signs/Physical Exam: Temp Pulse Resp BP Pulse Ox 98.0 F 69 20 203/83 H 93 01/01/25 08:00 01/01/25 08:17 01/01/25 08:00 01/01/25 08:17 01/01/25 08:00 Laboratory Data at Discharge: WBC 9.30 thou/uL (4.3-10.9) 12/27/24 05:34 Hgb 12.9 g/dL (12.0-15.0) 12/27/24 05:34 Hct 38.3 % (36.0-45.0) 12/27/24 05:34 Plt Count 169 thou/uL (152-406) 12/27/24 05:34 PT 12.9 SECONDS (10-13.0) 12/26/24 18:14 INR 1.14 12/26/24 18:14 Sodium 137 mEq/L (136-145) 01/01/25 05:33 Potassium 3.6 mEq/L (3.5-5.1) 01/01/25 05:33 BUN 12 mg/dL (7-18) 01/01/25 05:33 Creatinine 1.08 mg/dL (0.55-1.02) H 01/01/25 05:33 Glucose 109 mg/dL (74-106) H 01/01/25 05:33 Phosphorus 3.4 mg/dL (2.5-4.9) 12/30/24 05:29 Magnesium 2.1 mg/dL (1.6-2.4) 01/01/25 05:33 Total Bilirubin 0.3 mg/dL (0.2-1.0) 12/27/24 05:34 AST < 10 U/L (15-37) L 12/27/24 05:34 ALT < 14 U/L (13-56) 12/27/24 05:34 Alkaline Phosphatase 98 U/L (45-117) 12/27/24 05:34 Lipase 47 U/L (13-75) 12/26/24 18:14 Home Medications: Atorvastatin Calcium 40 mg PO BEDTIME 12/27/24 Citalopram [Celexa*] 100 mg PO QID 12/27/24 Glipizide [Glipizide Xl] 5 mg PO DAILY 12/27/24 Magnesium Salicylate/Caffeine [Diurex Water Pills] 1 each PO DAILY 12/27/24 PHENYTOIN ER Cap [Dilantin ER Cap*] 100 mg PO DAILY 12/27/24 Pantoprazole [Protonix Tab*] 40 mg PO DAILY 12/27/24 Amiodarone HCl [Cordarone*] 200 mg PO DAILY 30 Days #30 tab 01/01/25 Amlodipine [Norvasc*] 10 mg PO DAILY 30 Days #30 tab 01/01/25 Apixaban [Eliquis] 5 mg PO BID 30 Days #60 tablet 01/01/25 Furosemide 40 mg PO DAILY 30 Days #30 tab 01/01/25 Losartan Potassium 100 mg PO DAILY 30 Days #30 tab 01/01/25 Metoprolol Succinate [Toprol Xl*] 50 mg PO DAILY 30 Days #30 tab 01/01/25 New Medications: Amiodarone HCl [Cordarone*] 200 mg PO DAILY 30 Days #30 tab Apixaban [Eliquis] 5 mg PO BID 30 Days #60 tablet Furosemide 40 mg PO DAILY 30 Days #30 tab Losartan Potassium 100 mg PO DAILY 30 Days #30 tab Amlodipine [Norvasc*] 10 mg PO DAILY 30 Days #30 tab Metoprolol Succinate [Toprol Xl*] 50 mg PO DAILY 30 Days #30 tab Physician Discharge Instructions: Physician discharge instructions: Patient presented with worsening SOB associated with irregular heartbeats, weakness secondary to acute CHF exacerbation. CT chest/abdomen/pelvis on admission noted pulmonary edema with bilateral pleural effusions Right > left. Echocardiogram this hospitalization with 60-65% EF, grade 2 diastolic dysfunction, mild tricuspid regurgitation, trace mitral regurgitation. Patient was started on IV lasix and had improvement of her symptoms. Repeat chest xray demonstrated improvement in bilateral pulmonary opacities. Lower extremity edema and breathing improved with diuresis. Patient breathing comfortably on room air on day of discharge. Patient was feeling better, breathing more comfortably on room air, afebrile without leukocytosis, edema improving, and was deemed stable for discharge. Patient's blood pressure was significantly elevated in the ED (200-220s) and fluctuated throughout hospitalization. Patient reportedly had been out of his home meds for some time. Patient had her blood pressure medications adjusted and was able to attain better control. Metoprolol was increased to 50 mg daily from 25 mg daily, and losartan was increased to 100 mg daily from 50 mg daily. Check blood pressure around the same time each day. Keep daily log of blood pressure readings to take to follow up appointments in case further adjustments of home meds are needed. Patient was noted to have a history of paroxsymal a-fib, not on anticoagulation prior to this hospitalization. Unclear exactly why she wasn't started on a blood thinner previously. There is no clear documentation on outside records found and family do not know. Cardiology discussed risks/benefits of starting anticoagulation with patient and family. Dr. Kidd recommended starting patient on eliquis 5 mg twice daily to which patient and family were agreeable too. Follow up with cardiology in 2-4 weeks for continued management. Medications: Eliquis 5 mg twice daily Amlodipine 10mg daily Losartan increased to 100 mg daily from 50mg Metoprolol XL increased to 50mg daily from 25mg continue Lasix 40 mg daily continue amiodarone as previously prescribed, refill sent continue other medications as previously prescribed - pantoprazole, phenytoin, etc. Continue other medications as previously prescribed Follow up: PCP 3-5 days Cardiology 2-4 weeks Please call to schedule / confirm appointments Followup: NONE,NONE [Primary Care Provider] - Time spent managing pt's care (in minutes): 45
== END 2025-01-01 13:01 | disposition home health service (06) | DRG 291 ==
LOC: ER 17:51 → ERHOLD 19:57 → 2ND 22:01
PROVIDERS: ADMIT Family Medicine; ATTEND Hospitalist
DX: I11.0 Hypertensive heart disease with heart failure (principal); I50.33 Acute on chronic diastolic (congestive) heart failure; J96.01 Acute respiratory failure with hypoxia; E87.6 Hypokalemia; E78.5 Hyperlipidemia, unspecified; E66.9 Obesity, unspecified; I48.0 Paroxysmal atrial fibrillation; I08.1 Rheumatic disorders of both mitral and tricuspid valves; G40.909 Epilepsy, unspecified, not intractable, without status epilepticus; I25.10 Atherosclerotic heart disease of native coronary artery without angina pectoris; I25.2 Old myocardial infarction; Z88.0 Allergy status to penicillin; Z68.35 Body mass index [BMI] 35.0-35.9, adult; Z79.01 Long term (current) use of anticoagulants; Z79.84 Long term (current) use of oral hypoglycemic drugs; Z79.899 Other long term (current) drug therapy
CPT/HCPCS: 36415; 71045; 71250; 74176; 80048; 80053; 80076; 80185; 82947; 83605; 83690; 83735; 83880; 84100; 84132; 84484; 85025; 85610; 87040; 93005; 93306; 94760; 99285; J0360; J0696; J1650; J1938; J2405; J3475; J7050